=== PATIENT | male | born 1990 | race Caucasian/White ===

== ENCOUNTER 2016-11-22 15:52 | Emergency (ER) | payer BC, SELFPAY ==
[2016-11-22] MEDS ORDERED: Adacel (T-DAP) 0.5 ML VIAL ONE (16:08)
== END 2016-11-22 17:00 ==
LOC: NAV ERS 15:52
DX: S61.213A Laceration without foreign body of left middle finger without damage to nail, initial encounter (principal); F17.220 Nicotine dependence, chewing tobacco, uncomplicated; W26.0XXA Contact with knife, initial encounter
CPT/HCPCS: 12001; 90471; 90715